=== PATIENT | female | born 2000 | race Asian ===

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

== ENCOUNTER 2022-07-28 12:46 | Emergency (ER) | payer MEDICAID ==
[~2022-07-28] VITALS: Ht 152.4 cm; Wt 49.1 kg
[2022-07-28 13:35] VITALS: BP 121/89
[2022-07-28 14:16] LABS: BASOPHILS % (AUTO) 0.7 % (0-1); EOSINOPHILS # (AUTO) 0.1 X10'3 (0-0.9); EOSINOPHILS % (AUTO) 3.1 % (0-6); HEMATOCRIT 35.5 % (35.0-45.0); HEMOGLOBIN 11.8 g/dl (12.0-16.0); LYMPHOCYTES # (AUTO) 1.4 X10'3 (1.1-4.8); LYMPHOCYTES % (AUTO) 30.8 % (21-51); MEAN CORPUSCULAR HEMOGLOBIN 28.6 PG (27.0-31.0); MEAN CORPUSCULAR HGB CONC 33.2 g/dL (33.0-36.5); MEAN CORPUSCULAR VOLUME 86.2 FL (78-98); MEAN PLATELET VOLUME 9.2 FL (7.4-10.4); MONOCYTES # (AUTO) 0.3 X10'3 (0-0.9); MONOCYTES % (AUTO) 5.6 % (2-12); NEUTROPHILS # (AUTO) 2.8 X10'3 (1.8-7.7); NEUTROPHILS % (AUTO) 59.8 % (42-75); PLATELET COUNT 222 X10'3 (140-440); RED BLOOD COUNT 4.11 X10'6 (4.20-5.60); RED CELL DISTRIBUTION WIDTH 13.2 % (11.5-14.5); WHITE BLOOD COUNT 4.6 X10'3 (4.5-11.0)
[2022-07-28 14:16] LABS: URINE HCG NEGATIVE (NEG)
[2022-07-28 14:18] LABS: CLARITY,URINE CLEAR (Clear); COLOR,URINE YELLOW (Yellow); GLUCOSE, URINE NEGATIVE (Neg); KETONES,URINE NEGATIVE (Neg); LEUKOCYTE ESTERASE ,URINE NEGATIVE (Neg); NITRITES, URINE NEGATIVE (Neg); OCCULT BLOOD,URINE NEGATIVE (Neg); PH,URINE 5.5 (4.8-8.0); PROTEIN,URINE NEGATIVE (Neg); UROBILINOGEN,URINE 0.2 E.U/dL (0.2-1.0)
[2022-07-28 14:27] LABS: ALANINE AMINOTRANSFERASE 27 U/L (12-78); ALBUMIN 3.9 G/DL (3.4-5.0); ALBUMIN/GLOBULIN RATIO 0.8 (1.1-1.5); ALKALINE PHOSPHATASE 76 IU/L (46-116); ANION GAP 9 (8-16); ASPARTATE AMINO TRANSFERASE 23 U/L (10-37); BILIRUBIN,TOTAL 0.3 MG/DL (0.1-1.0); BLOOD UREA NITROGEN 13 MG/DL (7-18); BUN/CREATININE RATIO 18.6 (6.6-38.0); CALCIUM 8.6 MG/DL (8.5-10.1); CHLORIDE 103 MMOL/L (99-107); GLUCOSE 93 MG/DL (70-104); LIPASE 147 U/L (73-393); POTASSIUM 3.4 MMOL/L (3.5-5.1); SODIUM 141 MMOL/L (135-145); TOTAL CARBON DIOXIDE 28.8 MMOL/L (24-32); TOTAL PROTEIN 8.6 G/DL (6.4-8.2); eGFR > 90 ML/MIN
[2022-07-28 14:27] LABS: UA COLLECTION TYPE CLN CATCH MIDSTREAM
== END 2022-07-28 17:42 | disposition home or self-care (01) ==
LOC: ER 12:46
DX: R10.31 Right lower quadrant pain (principal); R11.0 Nausea
CPT/HCPCS: 36415; 80053; 81003; 81025; 83690; 85025; 99283

== ENCOUNTER 2025-05-11 11:27 | Emergency (ER) | payer MEDICAID, OTHER ==
[~2025-05-11] VITALS: Ht 152.4 cm; Wt 51.0 kg
--- NOTE | 2025-05-11 12:25 | Physician Documentation ---
History of Present Illness ~ Chief Complaint: Mechanical Fall Stated Complaint: HEAD INJURY Time Seen by MD: 11:56 OK to notify your PCP?: Yes Primary Medical Doctor: Hui Almaguer Source: patient Mode of Arrival: POV Exam Limitations: no limitations HPI 24-year-old female with chief complaint pain in back of head that occurred three days ago while at work on 05/08/25. She went to see [facility] today and s carol she was told that she had to be seen in the ER before they would see her. 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 She reports she had a headache for about 30 minutes after this trauma. She is concerned because when she was younger she had a bad head trauma that triggered migraines for many years to follow. She is hoping that this isn't going to be the same scenario. She denies neck pain. There was no loss of consciousness. She states that currently she has zero symptoms. She states "I was a little c onfused that [facility] sent me here because I didn't think I needed to come here." She tried to go to work on Tuesday but states that her work sent her home to rest stating "They wanted me to take the day off." Tetanus within 5 Years?: No (2011) Medication Reconciliation Allergies: Coded Allergies: No Known Allergies (Unverified , 10/19/15) Past Medical History Past Medical History: No Pertinent History, Eczema Past Surgical History: no surgical history Alcohol Use: None Drug Use: none Lives In: Home Occupation: child Review of Systems All Other Systems at this time: Reviewed and Negative Physical Exam Vital Signs: Temperature: 98.1, Source: Oral, Heart Rate: 18, Respiratory Rate: 20, BP: 118/70, Pulse Oximetry: 98, Weight: 51.000 Physical Exam General Appearance: Alert, WD/WN. NAD. HEENT: NCAT, PERRL, EOMI. Neck: Supple, trachea midline. Cardiovascular: RRR. No m/r/g. Lungs: CTAB. Breathing unlabored Extremities: Normal inspection. No edema. MSK: NO SWELLING ON BACK OF SCALP OR ABNORMALITIES APPRECIATED. Skin: Warm/dry, normal color Neurological: Alert and oriented x4, normal gait. Psychiatric: Affect congruent with mood. Progress Results/Orders Results/Orders Vital Signs 05/11/25 11:41 Temp 98.1 Pulse 18 Resp 20 B/P (MAP) 118/70 Pulse Ox 98 Medical Decision Making Differential Dx:Considerations: Include: Closed head injury, Cardiac injury, Fracture(s), Intraabdominal injury, Pneumothorax, Cerebral contusion, Pulmonary contusion, Spine injury, Tracheal injury, Urological injury, Vascular injury, Abrasion(s), Contusion(s), Foreign body(s), Hematoma(s), Laceration(s), Encephalopathy Departure Time of Disposition: 12:23 Disposition: 01 HOME / SELF CARE / HOMELESS Impression: Primary Impression: Acute head trauma Qualified Codes: S09.90XA - Unspecified injury of head, initial encounter Condition: Stable Discharge Instructions: Fall Prevention in the Home, Adult, [id number] Additional Instructions: F/U WITH [employer] PER PROTOCOL YOU ARE CLEARED TO RETURN TO WORK FROM AN ER STANDPOINT SINCE NO LOSS OF CONSCIOUSNESS AND NOT ON THINNERS AND NO OTHER RED FLAGS BENEFITS OF DOING A CT SCAN DO NOT OUTWEIGH THE RISKS Referrals: NO PRIMARY CARE PROVIDER (PCP) Education Educated: Patient Educated regarding: diagnosis, treatment, need for follow up Signature Scribe Signature: X Attestation: CHASE NUNEZ May 11, 2025 12:25
[2025-05-11 12:37] VITALS: BP 110/76; PULSE 66; RESP 17; TEMP 98.1; O2SAT 99
== END 2025-05-11 12:38 | disposition home or self-care (01) ==
LOC: ER 11:27
DX: S09.90XA Unspecified injury of head, initial encounter (principal); W19.XXXA Unspecified fall, initial encounter; Y93.89 Activity, other specified; Y92.89 Other specified places as the place of occurrence of the external cause; Y99.8 Other external cause status
CPT/HCPCS: 99281; 99282